=== PATIENT | male | born 2000 | race Caucasian/White ===

== ENCOUNTER 2021-08-03 05:29 | Emergency (ER) | payer OTHER ==
[~2021-08-03 05:29] MED LIST: BENTYL 20MG TAB20 MG PO; PREDNISONE20 MG PO; ZOFRAN4 MG PO
[2021-08-03 06:55] LABS: HEMOGLOBIN 14.6 gm/dl (14.0-17.5); RED BLOOD COUNT 5.39 M/UL (4.20-5.50); WHITE BLOOD COUNT 13.9 K/UL (4.5-11.0)
[2021-08-03 07:36] LABS: BUN/CREATININE RATIO 16 (0-10)
== END 2021-08-03 13:10 | disposition home or self-care (01) ==
LOC: ER1 05:29
PROVIDERS: Physician Assistant Medical
DX: F31.9 Bipolar disorder, unspecified (principal); F43.12 Post-traumatic stress disorder, chronic; F10.10 Alcohol abuse, uncomplicated; Z20.822 Contact with and (suspected) exposure to COVID-19
CPT/HCPCS: 80053; 80307; 81001; 85025; 96374; 99285; G0480; J2405; U0002